=== PATIENT | female | born 1970 | race Caucasian/White ===

== ENCOUNTER 2024-07-07 23:40 | Emergency (ER) | payer SELFPAY ==
[~2024-07-07] VITALS: Ht 162.6 cm; Wt 75.0 kg
[2024-07-07 23:55] VITALS: TEMP 98.2; O2SAT 100
[2024-07-08 00:52] LABS: BASOPHILS % 0.8 % (0.0-2.0); DIFFERENTIAL COMMENT 0; HEMATOCRIT. 37.4 % (36.0-48.0); HEMOGLOBIN. 11.9 g/dL (12.0-16.0); LYMPHOCYTES % 22.7 % (20.0-50.0); MEAN CORPUSCULAR HEMOGLOBIN 24.8 pg (28.0-32.0); MEAN CORPUSCULAR HGB CONC 31.7 g/dL (31.0-37.0); MEAN CORPUSCULAR VOLUME 78.3 fL (81.0-99.0); MEAN PLATELET VOLUME 9.2 fl (7.4-10.4); MONOCYTES % 10.8 % (2.0-8.0); NEUTROPHILS % 64.7 % (40.0-76.0); PLATELET 218 x1000/uL (130-400); RED BLOOD CELL COUNT 4.78 mill/uL (4.2-5.4); RED CELL DISTRIBUTION WIDTH 19.2 % (11.6-14.6); WHITE BLOOD COUNT 3.9 x1000/uL (4.5-11.0)
[2024-07-08 01:00] LABS: CHLORIDE 104 mEq/L (98-107); POTASSIUM 3.5 mEq/L (3.5-5.1); SODIUM 136 mEq/L (136-145)
[2024-07-08 01:01] LABS: CARBON DIOXIDE 24 mEq/L (21-32)
[2024-07-08 01:06] LABS: CREATININE 0.8 mg/dL (0.6-1.0); GLUCOSE 113 mg/dL (70-105); UREA NITROGEN BLOOD 16 mg/dL (9-23)
[2024-07-08 01:07] LABS: TROPONIN I HIGH SENSITIVITY 4 ng/L (3.0-34)
[2024-07-08 01:08] LABS: PARTIAL THROMBOPLASTIN TIME 29.6 sec (23.4-31.0); PROTHROMBIN TIME 11.4 sec (9.6-11.0)
[2024-07-08 01:15] LABS: ETHANOL BLOOD < 10 mg/dL (<10)
[2024-07-08] MEDS: AMLODIPINE 5MG TABLET PO ONE (01:47)
[2024-07-08] MEDS ORDERED: AMLO5TAB88 MT (03:01)
[2024-07-08 03:15] VITALS: BP 151/74; PULSE 61; RESP 20; O2SAT 95
== END 2024-07-08 03:18 | disposition home or self-care (01) ==
LOC: ER 23:40
DX: I10 Essential (primary) hypertension (principal); R42 Dizziness and giddiness
CPT/HCPCS: 99285; 80048; 80320; 83880; 83690; 85025; 85610; 85730; 84484; 36415; 71045; 70450; 93005; Z7610; G0480

== ENCOUNTER 2024-07-31 15:19 | Emergency (ER) | payer MEDICAID ==
[~2024-07-31] VITALS: Ht 162.6 cm; Wt 84.0 kg
[~2024-07-31 15:19] MED LIST: AMLO5TAB88 MT
[2024-07-31 15:33] VITALS: O2SAT 98
[2024-07-31 17:47] VITALS: BP 150/78; PULSE 94; RESP 16; TEMP 36.55848; O2SAT 98
== END 2024-07-31 17:47 | disposition home or self-care (01) ==
LOC: ER 15:19
DX: K09.8 Other cysts of oral region, not elsewhere classified (principal); I10 Essential (primary) hypertension
CPT/HCPCS: 99281